=== PATIENT | male | born 1995 | race Hispanic/Latino ===

== ENCOUNTER 2021-04-09 08:40 | Emergency (ER) | payer SELFPAY | END 2021-04-09 09:39 | disposition home or self-care (01) | LOC: ERS 08:40 | DX: L03.116 Cellulitis of left lower limb (principal) | CPT/HCPCS: 36416; 99283 ==

== ENCOUNTER 2021-11-22 11:31 | Emergency (ER) | payer SELFPAY | END 2021-11-22 12:49 | disposition home or self-care (01) | LOC: ERS 11:31 | DX: M10.9 Gout, unspecified (principal) | CPT/HCPCS: 99282 ==

== ENCOUNTER 2021-12-10 01:27 | Emergency (ER) | payer SELFPAY | END 2021-12-10 02:38 | disposition home or self-care (01) | LOC: ERS 01:27 | DX: M10.9 Gout, unspecified (principal) | CPT/HCPCS: 99283 ==

== ENCOUNTER 2022-01-12 11:25 | Emergency (ER) | payer SELFPAY | END 2022-01-12 13:09 | disposition home or self-care (01) | LOC: ERS 11:25 | DX: S90.511A Abrasion, right ankle, initial encounter (principal); M10.9 Gout, unspecified ==